=== PATIENT | male | born 1990 | race Caucasian/White ===

== ENCOUNTER 2022-06-25 01:39 | Emergency (ER) | payer SELFPAY ==
[~2022-06-25] VITALS: Ht 172.7 cm; Wt 86.0 kg
[2022-06-25 02:16] VITALS: BP 119/81
== END 2022-06-25 03:29 | disposition home or self-care (01) ==
LOC: ER 01:45
DX: S00.03XA Contusion of scalp, initial encounter (principal); S00.81XA Abrasion of other part of head, initial encounter; F10.129 Alcohol abuse with intoxication, unspecified; Y90.9 Presence of alcohol in blood, level not specified; V18.0XXA Pedal cycle driver injured in noncollision transport accident in nontraffic accident, initial encounter; Y93.55 Activity, bike riding; Y92.488 Other paved roadways as the place of occurrence of the external cause
CPT/HCPCS: 99284